=== PATIENT | male | born 1985 | race Caucasian/White ===

== ENCOUNTER 2020-03-01 14:39 | Observation (INO) ==
[2020-03-01] MEDS ORDERED: LORazepam 0.5 MG/1 ML VIAL IV STA (14:59)
[2020-03-01] MEDS ORDERED: GLUCAGON 1 ML IV ONE (14:59)
[2020-03-01] MEDS ORDERED: METOCLOPRAMIDE HCL INJ 5 MG/ML 2 ML VIAL IV ONE (14:59)
[2020-03-01] MEDS ORDERED: diphenhydrAMINE 50 MG/ML VIAL ONE (15:07)
--- NOTE | 2020-03-01 15:23 | Emergency Department Note ---
Impression & Plan Acute esophageal obstruction ED Provider Note INFORMANT: Patient ED PROVIDER(S): Naveen Hartmann MD CHIEF COMPLAINT: Food bolus PLAN: Disposition: Transfer to the OR suite for endoscopy intervention by GI Condition: Good MEDICAL DECISION MAKING: Patient presented with acute esophageal obstruction symptoms after eating pork. He has a history of the same. An IV was established. He was given Reglan, Benadryl, Ativan, and glucagon. Consultation was made with gastroenterology. I discussed the case with Dr. Tran as the patient did not have resolution of his symptoms with medication. She will take the patient emergently to the OR for endoscopy. Triage Nursing notes reviewed and agree them. Vital Signs: reviewed and remarkable for no significant abnormalities Differential diagnosis: Esophageal stricture, esophageal food impaction, esophagitis, esophageal perf oration, aspiration, as well as others were entertained. Diagnostics interpreted by me: Imaging studies: Deferred Consultation(s): Gastroenterology HPI: The patient is a 34 year old male who presents to the Emergency Room with complaints of esophageal food impaction. This started less than an hour and is from eating pork. The patient also notes the following associated symptoms, inability to swallow his own saliva. The patient has found no relieving factors. Current pain is rated as 0/10. Patient has a history of the same several months ago. He was treated at [facility] with endoscopy and dilation. He has been in good health recently. Pt denies LOC, headache, fevers, chills, diaphoresis, visual changes, neck pain, chest pain, breathing difficulties, nausea, vomiting, abdominal pain, back pain, melena, hematochezia, urinary symptoms, numbness, weakness, lymphadenopathy, rash, or other complaints. ROS: See above HPI for pertinent positives & negatives. A total of 10 systems reviewed and were otherwise negative. PAST MEDICAL HISTORY:See Below, esophageal stricture PAST SURGICAL HISTORY:See Below, endoscopy and dilation FAMILY HISTORY:See Below SOCIAL HISTORY:See Below, HOME MEDICATIONS:See Below ALLERGIES:See Below VITALS:See Below PHYSICAL EXAMINATION: GENERAL: Awake, alert, mildly uncomfortable-appearing, in no distress HENT: Normocephalic, atraumatic. Oropharynx unremarkable. EYES: Normal conjunctiva. Sclera non-icteric. NECK: Inspection normal. Non-tender. Supple. No nuchal rigidity. FROM. No masses. RESPIRATORY: Clear to auscultation. No wheezes. No rales. Normal respiratory e ffort. CARDIAC: Normal rate. Normal rhythm. No murmurs. No rubs. Extremities warm and well perfused. Pulses equal. No JVD. GI: Soft, non-distended. No tenderness to palpation. No rebound or guarding. No masses. RECTAL: Deferred. MUSCULOSKELETAL: Atraumatic. Chest examination reveals no tenderness. The back is symmetrical on inspection without obvious abnormality. There is no CVA tenderness to palpation. No joint edema. LOWER EXTREMITIES: Calves are equal size bilaterally and non-tender. No edema. No discoloration. NEURO: Normal sensorium. No sensory or motor deficits noted. SKIN: No rash or jaundice noted. Naveen Hartmann MD Past Med/Surg History Medical History (Updated 03/01/20 @ 16:56 by Lauren Pelayo MD) No significant past medical history Surgical History (Updated 03/01/20 @ 16:57 by Lauren Pelayo MD) History of esophagogastroduodenoscopy (EGD) Social History Smoking Status: Never smoker Feels Safe at Home: Yes Allergies Allergies Allergy/AdvReac Type Severity Reaction Status Date / Time No Known Allergies Allergy Unverified 03/01/20 16:00 Home Meds Home Medications Medication Instructions Recorded Confirmed No Known Home Medications 03/01/20 03/01/20 Results & Data (ED) Vital Signs Vital Signs - 24 hr 03/01/20 14:52 03/01/20 16:50 03/01/20 17:00 Temperature 36.5 C Temperature Source Oral Pulse Rate 80 Pulse Rate [Apical] Pulse Rate [Finger] 70 Pulse Rhythm [Apical] Respiratory Rate 16 17 Respiratory Effort / Characteristics Respiratory Depth Respiratory Pattern Blood Pressure 133/81 Blood Pressure [Left Arm] 121/84 Blood Pressure Mean 98 Blood Pressure Mean [Left Arm] 96 Blood Pressure Position [Left Arm] Pulse Oximetry 99 100 Oxygen Delivery Method Room Air Room Air Oxygen Flow Rate Sepsis Recent Fever Within 48 Hours No Sepsis New/Unexplained Change in Mental Status N/A Sepsis Action Taken by Nursing No Action Required 03/01/20 18:34 03/01/20 18:40 03/01/20 18:50 Temperature 36.9 C Temperature Source Temporal Artery Scan Pulse Rate Pulse Rate [Apical] 104 H 99 H 100 H Pulse Rate [Finger] Pulse Rhythm [Apical] Regular Regular Regular Respiratory Rate 30 H 24 22 Respiratory Effort / Characteristics Non-Labored Spontaneous Non-Labored Spontaneous Non-Labored Spontaneous Respiratory Depth Normal Normal Normal Respiratory Pattern Regular Regular Regular Blood Pressure Blood Pressure [Left Arm] 118/78 130/77 99/75 L Blood Pressure Mean Blood Pressure Mean [Left Arm] 91 94 83 Blood Pressure Position [Left Arm] Lying Lying Lying Pulse Oximetry 100 100 98 Oxygen Delivery Method Oxymask Oxymask Oxymask Oxygen Flow Rate 5 5 5 Sepsis Recent Fever Within 48 Hours Sepsis New/Unexplained Change in Mental Status Sepsis Action Taken by Nursing 03/01/20 19:00 03/01/20 19:10 03/01/20 19:20 Temperature Temperature Source Pulse Rate Pulse Rate [Apical] 95 H 95 H 87 Pulse Rate [Finger] Pulse Rhythm [Apical] Regular Regular Regular Respiratory Rate 14 14 16 Respiratory Effort / Characteristics Non-Labored Spontaneous Non-Labored Spontaneous Non-Labored Spontaneous Respiratory Depth Normal Normal Normal Respiratory Pattern Regular Regular Regular Blood Pressure Blood Pressure [Left Arm] 122/77 129/74 123/77 Blood Pressure Mean Blood Pressure Mean [Left Arm] 92 92 92 Blood Pressure Position [Left Arm] Semi-fowlers Semi-fowlers Semi-fowlers Pulse Oximetry 96 96 88 L Oxygen Delivery Method Room Air Room Air Room Air Oxygen Flow Rate Sepsis Recent Fever Within 48 Hours Sepsis New/Unexplained Change in Mental Status Sepsis Action Taken by Nursing 03/01/20 19:25 03/01/20 19:30 03/01/20 19:35 Temperature Temperature Source Pulse Rate Pulse Rate [Apical] 96 H 92 H 100 H Pulse Rate [Finger] Pulse Rhythm [Apical] Regular Regular Regular Respiratory Rate 20 16 14 Respiratory Effort / Characteristics Non-Labored Spontaneous Non-Labored Spontaneous Non-Labored Spontaneous Respiratory Depth Normal Normal Normal Respiratory Pattern Regular Regular Regular Blood Pressure Blood Pressure [Left Arm] 126/73 121/88 126/75 Blood Pressure Mean Blood Pressure Mean [Left Arm] 90 99 92 Blood Pressure Position [Left Arm] Semi-fowlers Semi-fowlers Semi-fowlers Pulse Oximetry 97 90 93 Oxygen Delivery Method Room Air Room Air Room Air Oxygen Flow Rate Sepsis Recent Fever Within 48 Hours Sepsis New/Unexplained Change in Mental Status Sepsis Action Taken by Nursing 03/01/20 19:45 03/01/20 19:50 03/01/20 20:00 Temperature Temperature Source Pulse Rate Pulse Rate [Apical] 92 H 86 95 H Pulse Rate [Finger] Pulse Rhythm [Apical] Regular Regular Regular Respiratory Rate 12 14 18 Respiratory Effort / Characteristics Non-Labored Spontaneous Non-Labored Spontaneous Non-Labored Spontaneous Respiratory Depth Normal Normal Normal Respiratory Pattern Regular Regular Regular Blood Pressure Blood Pressure [Left Arm] 131/78 118/79 123/79 Blood Pressure Mean Blood Pressure Mean [Left Arm] 95 92 93 Blood Pressure Position [Left Arm] Semi-fowlers Semi-fowlers Semi-fowlers Pulse Oximetry 97 95 95 Oxygen Delivery Method Nasal Cannula Nasal Cannula Nasal Cannula Oxygen Flow Rate 2 2 2 Sepsis Recent Fever Within 48 Hours Sepsis New/Unexplained Change in Mental Status Sepsis Action Taken by Nursing 03/01/20 20:10 03/01/20 20:20 03/01/20 20:30 Temperature 37.1 C Temperature Source Oral Pulse Rate Pulse Rate [Apical] 92 H 93 H 90 Pulse Rate [Finger] Pulse Rhythm [Apical] Regular Regular Regular Respiratory Rate 24 26 H 22 Respiratory Effort / Characteristics Non-Labored Spontaneous Non-Labored Spontaneous Non-Labored Spontaneous Respiratory Depth Normal Normal Normal Respiratory Pattern Regular Regular Regular Blood Pressure Blood Pressure [Left Arm] 117/83 127/82 121/83 Blood Pressure Mean Blood Pressure Mean [Left Arm] 94 97 95 Blood Pressure Position [Left Arm] Semi-fowlers Semi-fowlers Semi-fowlers Pulse Oximetry 94 95 98 Oxygen Delivery Method Nasal Cannula Nasal Cannula Nasal Cannula Oxygen Flow Rate 3 3 3 Sepsis Recent Fever Within 48 Hours Sepsis New/Unexplained Change in Mental Status Sepsis Action Taken by Nursing 03/01/20 20:40 03/01/20 20:50 03/01/20 21:00 Temperature Temperature Source Pulse Rate Pulse Rate [Apical] 102 H 95 H 94 H Pulse Rate [Finger] Pulse Rhythm [Apical] Regular Regular Regular Respiratory Rate 26 H 24 30 H Respiratory Effort / Characteristics Non-Labored Spontaneous Non-Labored Spontaneous Non-Labored Spontaneous Respiratory Depth Normal Normal Normal Respiratory Pattern Regular Regular Regular Blood Pressure Blood Pressure [Left Arm] 122/77 115/67 131/96 Blood Pressure Mean Blood Pressure Mean [Left Arm] 92 83 107 Blood Pressure Position [Left Arm] Semi-fowlers Semi-fowlers Semi-fowlers Pulse Oximetry 94 96 96 Oxygen Delivery Method Nasal Cannula Nasal Cannula Nasal Cannula Oxygen Flow Rate 3 3 3 Sepsis Recent Fever Within 48 Hours Sepsis New/Unexplained Change in Mental Status Sepsis Action Taken by Nursing 03/01/20 21:10 Temperature Temperature Source Pulse Rate Pulse Rate [Apical] 100 H Pulse Rate [Finger] Pulse Rhythm [Apical] Regular Respiratory Rate 24 Respiratory Effort / Characteristics Non-Labored Spontaneous Respiratory Depth Normal Respiratory Pattern Regular Blood Pressure Blood Pressure [Left Arm] 136/85 Blood Pressure Mean Blood Pressure Mean [Left Arm] 102 Blood Pressure Position [Left Arm] Semi-fowlers Pulse Oximetry 97 Oxygen Delivery Method Nasal Cannula Oxygen Flow Rate 3 Sepsis Recent Fever Within 48 Hours Sepsis New/Unexplained Change in Mental Status Sepsis Action Taken by Nursing Laboratory Data Lab Results 03/01/20 03/01/20 Range/Units 15:30 15:30 COVID-19 Eval Order CovFluRsv at [facility] COVID-19 PCR NEGATIVE (Negative) Influenza Type A (PCR) Negative (Neg) Influenza Type B (PCR) Negative (Neg) RSV (RT-PCR) Negative (Neg) Administered Medications Discontinued Medications Diphenhydramine HCl (Diphenhydramine 50 Mg/Ml Vial) Confirm Administered Dose 50 mg .ROUTE .STK-MED ONE Stop: 03/01/20 15:08 Last Admin: 03/01/20 15:14 Dose: 12.5 mg Documented by: [id number] Diphenhydramine HCl 12.5 mg/ (Syringe) 0.25 mls @ 1 mls/hr IV NOW STA Stop: 03/01/20 15:13 Last Admin: 03/01/20 15:14 Dose: Not Given Documented by: [id number] Lorazepam (Ativan) 0.5 mg in 1 mls @ 1 mls/min IV NOW STA Stop: 03/01/20 15:00 Last Admin: 03/01/20 15:13 Dose: 1 mls/min Documented by: [id number] Glucagon (Glucagen) 1 mls @ 1 mls/min IV ONE ONE Stop: 03/01/20 15:00 Last Admin: 03/01/20 15:13 Dose: 1 mls/min Documented by: [id number] Metoclopramide HCl (Metoclopramide Hcl Inj 5 Mg/Ml 2 Ml Vial) 5 mg IV ONE ONE Stop: 03/01/20 15:00 Last Admin: 03/01/20 15:13 Dose: 5 mg Documented by: [id number] Discharge Plan Visit Data Chief Complaint: Food Bolus Stated Complaint: FOOD STUCK IN THROAT ED Provider: Naveen Hartmann Discharge Problem: Acute esophageal obstruction Patient Disposition: Still a Patient Discharge Instructions Interventions: ED Discharge Assessment Last Done: 03/01/20 17:00
[2020-03-01 16:24] LABS: Influenza A virus by PCR Negative (Neg); Influenza B virus by PCR Negative (Neg); RSV by PCR Negative (Neg); SARS CoV2 RNA(COVID-19) InHosp NEGATIVE (Negative)
--- NOTE | 2020-03-01 16:39 | Gastrointestinal Consultation ---
Date of Consultation March 01, 2020 Supervising Physician Co-Signing Physician Notes Egd in the OR for a suspected food bolus. History of Present Illness Reason for Consultation: Food bolus Requesting Physician: JANE - Dr. Phipps Attending Physician: Parvin Tran History of Present Illness 34 yo male ate pork this afternoon around 1 pm- one piece and thereafter can not swallow. He conitnued to feel like he had the inability to swallow thereafter. Came to the ER - seen by the ER physician, reportedly not tolerating his secretions. No response to the medical cocktail. Agreeable to a scope reportedly as he reports this "feels like before." On review of the [facility] GI record- he had a food bolus treated by Dr. Márquez with removal at [facility] in 09/20 with a snare and also alisa forceps - appears to have been some type of meat then. Thereafter, had a repeat egd at [facility] in 10/20 for follow-up empirically dilated to 15 and then 16 mm. No overt narrowing noted on either scope from 09/20 or 10/20. Biopsies done in 10/20 of his esophagus were essentially remarkable, he was noted to have celiac disease on biopsies from the duodenum. He was prescribed prilosec 20 mg po daily in 10/20 reports he has been takin git. Not on blood thinners. Covid negative. outside in the car. Denies fevers, chills, chest pain, sob, belly pain. Allergies Allergy/AdvReac Type Severity Reaction Status Date / Time No Known Allergies Allergy Unverified 03/01/20 16:00 Home Medications Medication Instructions Recorded Confirmed Type No Known Home Medications 03/01/20 03/01/20 History Patient History Medical History (Updated 03/01/20 @ 15:20 by Naveen Hartmann MD) No significant past medical history Social History Smoking Status: Never smoker Feels Safe at Home: Yes Review of Systems Review of Systems: All systems reviewed & are unremarkable except as noted in HPI & below Physical Exam Physical Exam: Well nourished male in nad, slightly tearful Constitutional: WD/WN, vitals as above well developed and well nourished; no acute distress Eyes: PERRL, conjunctivae normal, anicteric sclerae Slightly tearful Respiratory: normal respiratory effort; no respiratory distress and no labored breathing Gastrointestinal (Abdomen): normal bowel sounds, soft, nontender, no hepatosplenomegaly Skin: no rashes, warm and dry Results & Data ([facility]) Vital Signs (Past 12 Hours) Vital Signs Temp Pulse Resp BP Pulse Ox 03/01/20 14:52 36.5 C 80 16 133/81 99 [facility] record reviewed [facility] reviewed
--- NOTE | 2020-03-01 16:57 | Anesthesiology Consultation ---
Date of Service March 01, 2020 Assessment & Plan (1) Encounter for pre-operative examination: Chart Review Chart Review: Acceptable Risk for Surgery and Patient NOT seen in Pre Admission Testing Consults Requested none History Height/Weight Height: 6 ft 2 in Weight: 101 kg Allergies Allergy/AdvReac Type Severity Reaction Status Date / Time No Known Allergies Allergy Unverified 03/01/20 16:00 Medications Home Medications Medication Instructions Recorded Confirmed Last Taken No Known Home Medications 03/01/20 03/01/20 Unknown Past Medical History Medical History (Updated 03/01/20 @ 16:56 by Lauren Pelayo MD) No significant past medical history Past Surgical History Surgical History (Updated 03/01/20 @ 16:57 by Lauren Pelayo MD) History of esophagogastroduodenoscopy (EGD) Social History Smoking Status: Never smoker Physical Exam Vital Signs Last Vital Signs Temp 36.5 C 03/01/20 14:52 Pulse 80 03/01/20 14:52 Resp 16 03/01/20 14:52 BP 133/81 03/01/20 14:52 Pulse Ox 99 03/01/20 14:52
[2020-03-01] MEDS ORDERED: LIDOCAINE HCL 2% 2 ML VIAL/AMP(20MG/ML) INFIL ONE (17:28)
[2020-03-01] MEDS ORDERED: PROPOFOL IV EMULSION 10 MG/ML 20 ML VIAL IV ONE (17:28)
[2020-03-01] MEDS ORDERED: SUCCINYLCHOLINE 100MG/5ML SYR IV ONE (17:28)
[2020-03-01] MEDS ORDERED: ATROPINE SULFATE 0.1 MG/ML 10ML SYR IV PRN (17:38)
[2020-03-01] MEDS ORDERED: PROMETHAZINE HCL 12.5 MG in SODIUM CHLORIDE 0.9% 50 ML IV PRN (17:38)
[2020-03-01] MEDS ORDERED: fentaNYL citrate 100 MCG/2 ML VIAL IV PRN (17:38)
[2020-03-01] MEDS ORDERED: ONDANSETRON INJ 2 MG/ML 2 ML VIAL IV PRN ×2 (17:38→23:24)
[2020-03-01] MEDS ORDERED: ePHEDrine sulfate 50 MG/ML AMP IV PRN (17:38)
[2020-03-01] MEDS ORDERED: fentaNYL citrate 100 MCG/2 ML VIAL ONE (17:59)
[2020-03-01] MEDS ORDERED: ONDANSETRON INJ 2 MG/ML 2 ML VIAL ONE (18:01)
[2020-03-01] MEDS ORDERED: ROCURONIUM BROMIDE 10 MG/ML 5 ML VIAL IV ONE (18:01)
--- NOTE | 2020-03-01 18:28 | GI REPORT ---
Patient Name: Redd Montes Procedure Date: 03/01/2020 5:11 PM Date of : 1985 Admit Type: Emergency Department Age: 34 Gender: Male Attending MD: Parvin Tran M.d. Procedure: Upper GI endoscopy Providers: Parvin Tran M.d. Referring MD: Naveen Hartmann Indications: Food Bolus Medicines: Propofol per Anesthesia, Lidocaine Complications: No immediate complications. Estimated Blood Loss: Estimated blood loss was minimal. Procedure: Pre-Anesthesia Assessment: - Patient identification and proposed procedure were verified prior to the procedure by the physician, the nurse and the anesthesiologist. The procedure was verified in the pre-procedure area. - Prior to the procedure, a History and Physical was performed, and patient medications, allergies and sensitivities were reviewed. The patient's tolerance of previous anesthesia was reviewed. - The risks and benefits of the procedure and the sedation options and risks were discussed with the patient. All questions were answered and informed consent was obtained. After obtaining informed consent, the endoscope was passed under direct vision. Throughout the procedure, the patient's blood pressure, pulse, and oxygen saturations were monitored continuously. The Endoscope was introduced through the mouth, and advanced to the second part of duodenum. The upper GI endoscopy was accomplished without difficulty. The patient tolerated the procedure well. Findings: Food was found in the upper - middle third of the esophagus. Removal of food was accomplished with the use of a Edward and Rat-tooth forceps in a piecemeal fashion. After a signfiicant amout of the bolus of food was removed, the scope passed into the stomach. Residual remnants of food noted in the esophagus were then pushed into the stomach. The examined esophagus after removal appeared normal without evidence of EoE - however he was noted to have an extremely tortuous esophagus primarily in the upper cervical esophagus. The examined stomach appeared normal. The duodenal bulb and second portion of the duodenum appeared normal. Impression: - Normal esophagus. - Food in the upper - middle third of the esophagus. Removal was successful. - Normal stomach. - Normal duodenal bulb and second portion of the duodenum. Recommendation: - Clear liquid diet for next day, then slow advancement to softs for one week. - Thereafter, if eating meat - needs to chew his meat thoroughly. - Would take his PPI twice daily until repeat EGD in 2-4 weeks. - Discharge to home with an escort when recovered. Parvin Tran M.D. Parvin Tran M.d. 03/01/2020 6:28:10 PM This report has been signed electronically. Note Initiated On: 03/01/2020 5:11 PM Number of Addenda: 0 I attest to the content of the Intraoperative Record and orders documented therein, exceptions below {[id number]}
--- NOTE | 2020-03-01 18:30 | Operative Report ---
PG Post Operative Report Pre & Post Diagnosis Operation Date: 03/01/20 18:00 Pre-Op Diagnosis: FOOD STUCK IN THROAT Post-Op Diagnosis: Food bolus I identified the patient and participated in the time-out.: Yes Procedure Operation Date: 03/01/20 18:00 Actual Procedures p EGD Foreign Body Removal(Not Applicable) - Parvin Tran MD Surgeon Parvin Tran MD Stencil Maker Sivan Fried Estimated Blood Loss 10 Findings Consistent with Post-Op Diagnosis Specimens None Description of Procedure EGD with removal of food bolus using a Edward and rat-tooth forceps I attest to the content of the Intraoperative Record and any orders documented therein. Any exceptions are noted below.
--- NOTE | 2020-03-01 19:53 | XRay Report ---
SINGLE VIEW CHEST CLINICAL HISTORY: Aspirated food bolus. FINDINGS: An AP, portable, upright chest radiograph is compared to study dated 09/03/2019. The cardiome diastinal silhouette is unremarkable. Question hazy airspace opacities in the left lung. The right josef ng appears clear. No large pleural effusion or pneumothorax is seen. The bony thorax is grossly intac t. No radiodense foreign body is identified. IMPRESSION: Question hazy airspace opacities in the left lung which may be artifactual. Correlate cli nically for evidence of a mild infectious/inflammatory pneumonitis. ACT 112: Negative or not required by law. Electronically signed by: Wes Garcia M.D. 03/01/2020 7:52 PM
--- NOTE | 2020-03-01 21:28 | Anesthesiology Progress Note ---
Date of Service March 01, 2020 Anesthesia Post Procedure Vital Signs Vital Signs: Temp Pulse Pulse Pulse Resp BP BP 03/01/20 21:10 100 H 24 136/85 03/01/20 21:00 94 H 30 H 131/96 03/01/20 20:50 95 H 24 115/67 03/01/20 20:40 102 H 26 H 122/77 03/01/20 20:30 90 22 121/83 03/01/20 20:20 37.1 C 93 H 26 H 127/82 03/01/20 20:10 92 H 24 117/83 03/01/20 20:00 95 H 18 123/79 03/01/20 19:50 86 14 118/79 03/01/20 19:45 92 H 12 131/78 03/01/20 19:35 100 H 14 126/75 03/01/20 19:30 92 H 16 121/88 03/01/20 19:25 96 H 20 126/73 03/01/20 19:20 87 16 123/77 03/01/20 19:10 95 H 14 129/74 03/01/20 19:00 95 H 14 122/77 03/01/20 18:50 100 H 22 99/75 L 03/01/20 18:40 99 H 24 130/77 03/01/20 18:34 36.9 C 104 H 30 H 118/78 03/01/20 16:50 70 17 121/84 03/01/20 14:52 36.5 C 80 16 133/81 Pulse Ox 03/01/20 21:10 97 03/01/20 21:00 96 03/01/20 20:50 96 03/01/20 20:40 94 03/01/20 20:30 98 03/01/20 20:20 95 03/01/20 20:10 94 03/01/20 20:00 95 03/01/20 19:50 95 03/01/20 19:45 97 03/01/20 19:35 93 03/01/20 19:30 90 03/01/20 19:25 97 03/01/20 19:20 88 L 03/01/20 19:10 96 03/01/20 19:00 96 03/01/20 18:50 98 03/01/20 18:40 100 03/01/20 18:34 100 03/01/20 16:50 100 03/01/20 14:52 99 Transfer of Care Handoff Completed per policy Notes Mental Status: alert / awake / arousable and participated in evaluation Patient Amnestic to Procedure: Yes Nausea / Vomiting: adequately controlled Pain: adequately controlled Airway Patency, RR, SpO2: see Notes below BP & HR: stable & adequate Hydration State: stable & adequate Anesthetic Complications: see Notes below and Pt Satisfied with anesthetic care Notes: Mr. Montes had a food bolus resulting in inability to swallow his own secretions. Despite aggressive suctioning prior to induction and rapid sequence intubation, the patients mouth was notable for copious amounts of clear fluid immediately after induction. About 200 ccs of clear fluid was suctioned from the airway and the ETT was placed on first attempt without any difficulties. The patient's lungs were rhonchorous immediately after intubation and more clear fluid was suctioned through the ETT. The patient tolerated the remainder of the procedure well and was oxygenating appropriately prior to extubation, but after arrival in PACU the patient was noted to desaturate to high 80s when talking or at rest. Levels improved with deep breathing and IS, but were not sustained. In addition, the patient was mildly tachycardic in PACU. Portable CXR was consistent with mild left sided pneumonitis. After discussing the intraoperative events with the patient and his , the decision was made to admit overnight for probable aspiration pneumonitis. Patient to be admitted overnight by [facility] Hospitalist. Dr. Tran was aware with the plan for admission.
[2020-03-01] MEDS ORDERED: ALBUT/IPRATROP 3MG/0.5MG NEB 3 ML VIAL NEB PRN (23:24)
[2020-03-01 23:33] LABS: Basophils # (auto) 0.01 K/uL (0-0.2); Basophils % (auto) 0.1 %; Eosinophils # (auto) 0.06 K/uL (0-0.5); Eosinophils % (auto) 0.3 %; Hematocrit (blood only) 44.6 % (42-52); Hemoglobin 15.2 g/dL (14.0-18.0); Immature Granulocytes # (auto) 0.04 K/uL (0.00-0.02); Immature Granulocytes % (auto) 0.2 %; Lymphocytes # (auto) 1.28 K/uL (1.2-3.4); Lymphocytes % (auto) 7.1 %; Mean Corpuscular Hemoglobin 31.9 pg (25-34); Mean Corpuscular Volume 93.7 fL (80-100); Mean Platelet Volume 10.8 fL (7.4-10.4); Monocytes % (auto) 6.7 %; Neutrophils # (auto) 15.43 K/uL (1.4-6.5); Neutrophils % (auto) 85.6 %; Platelet Count 254 K/uL (130-400); RDW Coefficient of Variation 12.8 % (11.5-14.5); RDW Standard Deviation 44.3 fL (36.4-46.3); Red Blood Count 4.76 M/uL (4.7-6.1); White Blood Count 18.02 K/uL (4.8-10.8)
[2020-03-01 23:35] LABS: Mean Corpuscular Hgb Conc 34.1 g/dL (32-36)
[2020-03-01 23:44] LABS: INR 1.1 (0.9-1.1); Partial Thromboplastin Ratio 0.9; Partial Thromboplastin Time 25.6 Seconds (21.0-31.0); Prothrombin Time 11.1 Seconds (9.0-12.0)
[2020-03-01] MEDS: NSS + 20MEQ KCL 20 MEQ/1,000 ML BAG IV SCH (23:52)
[2020-03-01] MEDS: FAMOTIDINE 20 MG in SYRINGE 3 ML IV SCH (23:52)
[2020-03-01 23:56] LABS: Albumin Level 3.7 gm/dl (3.4-5.0); BUN Creatinine Ratio 17.8 (10-20); Calcium 7.9 mg/dl (8.5-10.1); Creatinine Clr Calc Pharmacy 150.4 ml/min; Est GFR (African American) 129.6; Est GFR (Non-African American) 111.8; Magnesium 1.9 mg/dl (1.8-2.4)
[2020-03-01 23:59] LABS: Albumin Globulin Ratio 1.2 (0.9-2); Bilirubin,Total 0.9 mg/dl (0.2-1); Globulin 3.1 gm/dl (2.5-4.0); Total Protein 6.8 gm/dl (6.4-8.2)
[2020-03-02] MEDS ORDERED: ACETAMINOPHEN 1,000 MG/100 ML VIAL IV PRN (00:18)
[2020-03-02] MEDS ORDERED: PIPERACILL/TAZOBAC CONSULT ACTIVE PRN (00:19)
[2020-03-02] MEDS ORDERED: PIPERACILLIN/TAZOBACTAM 3.375 GM in DEXTROSE 5% 100 ML IV ONE (00:45)
--- NOTE | 2020-03-02 04:06 | History & Physical Report ---
Date of Service March 02, 2020 Assessment & Plan (1) Aspiration pneumonitis: Aspiration pneumonitis with hypoxia and fever- NPO Zosyn 4.5 g IV every 8 hours Acetaminophen 1000 mg IV every 8 hours as needed pain or temperature NSS + KCl 20 mEq at 100 mils per hour Famotidine 20 mg IV every 12 hours DuoNebs every 2 hours as needed Consult pulmonology. Present on Admission?: Yes (2) Hypoxia: Nasal cannula, titrate to keep O2 saturation 95%. Present on Admission?: Yes (3) Acute esophageal obstruction: Status post EGD with relief of obstruction. Present on Admission?: Yes Admission and Anticipated Discharge Date Admission Date: March 01, 2020 History of Present Illness Chief Complaint: The patient underwent EGD for food bolus earlier in the day, and there was concern regarding likely aspiration pneumonitis due to associated large volume of secretions present during the procedure and decreased oxygen saturation afterwards. Primary Care Provider: Elio Alonso MD The patient is a 34-year-old male with a past medical history of previous acute esophageal obstruction, who presented to the emergency department earlier in the day. He was taken to the OR by Dr. Parvin Tran, was noted to have large volume of secretions and concerns regarding possible aspiration pneumonitis, and medicine was asked to admit the patient for observation overnight. Allergies Allergy/AdvReac Type Severity Reaction Status Date / Time No Known Allergies Allergy Unverified 03/01/20 16:00 Home Medications Medication Instructions Recorded Confirmed Type No Known Home Medications 03/01/20 03/01/20 History Past Med/Surg History Medical History (Updated 03/02/20 @ 04:04 by Vinicius Capone MD) No significant past medical history Surgical History (Updated 03/01/20 @ 16:57 by Lauren Pelayo MD) History of esophagogastroduodenoscopy (EGD) Social History Smoking Status: Never smoker Second Hand Exposure: No; Do You Dip or Chew Tobacco: No; Tobacco Cessation Education Requested by Patient: No Hx Alcohol Use: Yes Alcohol type: beer Hx Substance Use: No Preferred Language: Indian Communication Ability: Effective Manager Financial Required: No Beliefs That Will Affect Care: None Current Living Situation: Spouse Other Information That Helps Us Care for You: Yes (same thing happened in September 2019) Feels Safe at Home: Yes Safety Concerns: Feels Safe At This Time Assistive Devices: Oxygen - Continuous Review of Systems Review of Systems: The patient denies chest pain, palpitations, lower extremity swelling, chills, sweats, diarrhea , constipation, abdominal pain, pelvic pain, blood in urine or stool, dysuria, urinary frequency or urgency, lightheadedness, dizziness, headache, memory loss, loss of consciousness, rash, abnormal bruising or bleeding, imbalance, focal or generalized weakness, numbness or tingling in arms or legs, generalized arthralgias or myalgias, back or neck pain, or night sweats. The review of systems is otherwise negative other than for that already noted above, and at least 10 systems have been reviewed. Physical Exam Physical Exam: The patient is seen post EGD, and is awake, alert and oriented 3, normocephalic and atraumatic, lying in bed and in no acute distress. HEENT--PERRL, EOMI, mucous membranes and oropharynx dry. Neck--supple. No JVD. No bruits. Thyroid normal, trachea midline, no adenopathy. Heart--normal S1 and S2. No murmurs, rubs or gallops. Lungs--few coarse breath sounds bilaterally. No respiratory distress, no accessory muscle use. Abdomen--normal bowel sounds and soft. Nontender. Nondistended. Extremities--no cyanosis or clubbing. No edema. Dermatologic--normal skin turgor, normal color, no abnormal lymph nodes, no rash. Neurologic--cranial nerves II through XII grossly intact. Rheumatologic--limited exam Psychiatric--normal affect. Results & Data Results & Data ([facility]) Vital Signs (Past 12 Hours) Vital Signs Temp Pulse Pulse Resp BP BP Pulse Ox 03/02/20 02:33 98.4 F 96 H 18 117/74 98 03/02/20 01:45 98.4 F 76 18 129/74 99 03/02/20 00:31 99.9 F H 111 H 18 132/76 96 03/02/20 00:07 101.8 F H 125 H 18 134/80 95 03/02/20 00:00 101.8 F H 116 H 17 123/79 92 03/01/20 23:24 03/01/20 22:50 98.8 F 115 H 38 H 138/82 96 03/01/20 22:40 111 H 34 H 131/78 96 03/01/20 22:25 115 H 30 H 134/79 95 03/01/20 22:10 104 H 36 H 132/79 95 03/01/20 21:55 101 H 34 H 121/88 94 03/01/20 21:40 89 28 H 145/81 H 97 03/01/20 21:25 95 H 28 H 145/93 H 99 03/01/20 21:10 100 H 24 136/85 97 03/01/20 21:00 94 H 30 H 131/96 96 03/01/20 20:50 95 H 24 115/67 96 03/01/20 20:40 102 H 26 H 122/77 94 03/01/20 20:30 90 22 121/83 98 03/01/20 20:20 98.8 F 93 H 26 H 127/82 95 03/01/20 20:10 92 H 24 117/83 94 03/01/20 20:00 95 H 18 123/79 95 03/01/20 19:50 86 14 118/79 95 03/01/20 19:45 92 H 12 131/78 97 03/01/20 19:35 100 H 14 126/75 93 03/01/20 19:30 92 H 16 121/88 90 03/01/20 19:25 96 H 20 126/73 97 03/01/20 19:20 87 16 123/77 88 L 03/01/20 19:10 95 H 14 129/74 96 03/01/20 19:00 95 H 14 122/77 96 03/01/20 18:50 100 H 22 99/75 L 98 03/01/20 18:40 99 H 24 130/77 100 03/01/20 18:34 98.4 F 104 H 30 H 118/78 100 03/01/20 16:50 70 17 121/84 100 Pulse Ox 03/02/20 02:33 03/02/20 01:45 03/02/20 00:31 03/02/20 00:07 03/02/20 00:00 03/01/20 23:24 95 03/01/20 22:50 03/01/20 22:40 03/01/20 22:25 03/01/20 22:10 03/01/20 21:55 03/01/20 21:40 03/01/20 21:25 03/01/20 21:10 03/01/20 21:00 03/01/20 20:50 03/01/20 20:40 03/01/20 20:30 03/01/20 20:20 03/01/20 20:10 03/01/20 20:00 03/01/20 19:50 03/01/20 19:45 03/01/20 19:35 03/01/20 19:30 03/01/20 19:25 03/01/20 19:20 03/01/20 19:10 03/01/20 19:00 03/01/20 18:50 03/01/20 18:40 03/01/20 18:34 03/01/20 16:50 Code Status & VTE Plan Code Status Full code VTE Prophylaxis Plan VTE Prophylaxis will be ordered: Yes PG Care Time/CCT Total # of Minutes Spent Total Time Spent with Patient: Total time spent is greater than 50% in coordination of care (as documented) at patient's floor/unit and/or counseling patient: Coding Level of Care Code 36873 OBS Care - Level 3 Diagnoses Aspiration pneumonitis J69.0 Hypoxia R09.02 Acute esophageal obstruction K22.2
[2020-03-02] MEDS ORDERED: PIPERACILLIN/TAZOBACTAM 3.375 GM in DEXTROSE 5% 100 ML IV SCH (06:00)
[2020-03-02] MEDS: FAMOTIDINE 20 MG in SYRINGE 3 ML IV SCH (08:02)
--- NOTE | 2020-03-02 08:17 | Gastroenterology Progress Note ---
Date of Service March 02, 2020 Assessment & Plan (1) Aspiration pneumonitis: (2) Acute esophageal obstruction: Suspected aspiration pna post EGD, clinically improving, afebrile this AM, labs pending. Tolerating diet that was advanced last evening. Soft, slippery diet for 1 week Chew food well Keep foods moist PPI twice daily until repeat EGD in 2-4 weeks PNA therapy per primary service GI to sign off. Recall if needed. Admission and Anticipated Discharge Date Admission Date: March 01, 2020 Supervising Physician Co-Signing Physician Notes I have seen and examined the patient and discussed the management with FREDRICK Seymour. 34 yo male admitted post food bolus removal yesterday evening due to concerns for aspiration pneumonitis per anesthesia's request. Had some mild chills in the recovery area, started on zosyn. Cxray showing pneumonitis. He had a significant amount of fluid in his mouth at the time of intubation that likely went into his lungs. Would continue a 7 day course of augmentin on discharge. Advance to soft diet this week. Recall egd in 2-4 weeks. Ok to dc home later today from a gi perspective if no fever or desaturation. Subjective Admitted w/ suspected aspiration pneumonitis with hypoxia, fever post EGD. Feeling well this AM. No CP or SOB. No GERD concerns. His diet appeared to be advanced already. He tolerated breakfast. No nausea or vomiting. Was febrile last evening, vitals this AM WNL. WBC elevation yesterday, no labs today. EGD: Normal esophagus. - Food in the upper - middle third of the esophagus. Removal was successful. - Normal stomach. - Normal duodenal bulb and second portion of the duodenum. Review of Systems Constitutional: no fever, no fatigue and no anorexia Respiratory: no cough and no dyspnea Cardiovascular: no chest pain and no dyspnea Gastrointestinal: no abdominal pain, no coffee ground emesis and no melena Physical Exam Constitutional: well nourished; no acute distress Neck: trachea midline Respiratory: normal respiratory effort; no respiratory distress and no labored breathing Auscultation: + diminished lung sounds Gastrointestinal (Abdomen): Percussion/Palpation: abdomen soft; abdomen nontender, no guarding, abdomen not rigid and no abdominal mass Skin: no rashes, warm and dry Results & Data ([facility]) Vital Signs (Past 12 Hours) Vital Signs Temp Pulse Pulse Resp BP BP Pulse Ox 11/30/20 07:14 36.9 C 87 18 129/77 99 03/02/20 02:33 36.9 C 96 H 18 117/74 98 03/02/20 01:45 36.9 C 76 18 129/74 99 03/02/20 00:31 37.7 C H 111 H 18 132/76 96 03/02/20 00:07 38.8 C H 125 H 18 134/80 95 03/02/20 00:00 38.8 C H 116 H 17 123/79 92 03/01/20 23:24 03/01/20 22:50 37.1 C 115 H 38 H 138/82 96 03/01/20 22:40 111 H 34 H 131/78 96 03/01/20 22:25 115 H 30 H 134/79 95 03/01/20 22:10 104 H 36 H 132/79 95 03/01/20 21:55 101 H 34 H 121/88 94 03/01/20 21:40 89 28 H 145/81 H 97 03/01/20 21:25 95 H 28 H 145/93 H 99 03/01/20 21:10 100 H 24 136/85 97 03/01/20 21:00 94 H 30 H 131/96 96 03/01/20 20:50 95 H 24 115/67 96 03/01/20 20:40 102 H 26 H 122/77 94 03/01/20 20:30 90 22 121/83 98 03/01/20 20:20 37.1 C 93 H 26 H 127/82 95 Pulse Ox 03/02/20 07:14 03/02/20 02:33 03/02/20 01:45 03/02/20 00:31 03/02/20 00:07 03/02/20 00:00 03/01/20 23:24 95 03/01/20 22:50 03/01/20 22:40 03/01/20 22:25 03/01/20 22:10 03/01/20 21:55 03/01/20 21:40 03/01/20 21:25 03/01/20 21:10 03/01/20 21:00 03/01/20 20:50 03/01/20 20:40 03/01/20 20:30 03/01/20 20:20
[2020-03-02] MEDS: NSS + 20MEQ KCL 20 MEQ/1,000 ML BAG IV SCH (10:26)
--- NOTE | 2020-03-02 10:27 | Discharge Summary ---
Date of Service March 02, 2020 Admission HPI Per Admitting Provider Chief Complaint: The patient underwent EGD for food bolus earlier in the day, and there was concern regarding likely aspiration pneumonitis due to associated large volume of secretions present during the procedure and decreased oxygen saturation afterwards. Primary Care Provider: Elio Alonso MD The patient is a 34-year-old male with a past medical history of previous acute esophageal obstruction, who presented to the emergency department earlier in the day. He was taken to the OR by Dr. Parvin Tran, was noted to have large volume of secretions and concerns regarding possible aspiration pneumonitis, and medic ine was asked to admit the patient for observation overnight. Admission Exam Per Admitting Provider The patient is seen post EGD, and is awake, alert and oriented 3, normocephalic and atraumatic, lying in bed and in no acute distress. HEENT--PERRL, EOMI, mucous membranes and oropharynx dry. Neck--supple. No JVD. No bruits. Thyroid normal, trachea midline, no adenopathy. Heart--normal S1 and S2. No murmurs, rubs or gallops. Lungs--few coarse breath sounds bilaterally. No respiratory distress, no accessory muscle use. Abdomen--normal bowel sounds and soft. Nontender. Nondistended. Extremities--no cyanosis or clubbing. No edema. Dermatologic--normal skin turgor, normal color, no abnormal lymph nodes, no rash. Neurologic--cranial nerves II through XII grossly intact. Rheumatologic--limited exam Psychiatric--normal affect. Principal Diagnosis aspiration pneumonitis Discharge Exam GENERAL: No acute distress. Well developed and well nourished. A/O x3. EYES: EOMI. Anicteric sclerae. HENT: Moist mucous membranes. RESPIRATORY: Clear to auscultation bilaterally. No wheezing, rales, or rhonchi. No increased respiratory effort. No accessory muscle use. O2 saturation is 99% on RA. CARDIOVASCULAR: Regular rate and rhythm. No murmurs. ABDOMEN: Soft, non-tender and non-distended. No palpable masses. Normal bowel sounds. EXTREMITIES: No edema. Non-tender. SKIN: Warm, dry. No rashes or lesions. NEUROLOGIC: No focal neurological deficits. PSYCHIATRIC: Cooperative. Appropriate mood and affect. Discharge Data Allergies Allergy/AdvReac Type Severity Reaction Status Date / Time No Known Allergies Allergy Unverified 03/01/20 16:00 Consultations 03/01/20 23:24 Consult Case Management - Discharge Planning Routine Consult Pulmonology Routine Procedures Performed Operation Date: 03/01/20 18:00 Actual Procedures p EGD Foreign Body Removal(Not Applicable) - Parvin Tran MD Hospital Course (1) Hypoxia: Aspiration pneumonitis with hypoxia - Patient developed hypoxia and fever after EGD - Was made NPO status and started on Zosyn 4.5g IV q8h as well as Acetaminophen 1000 mg IV every 8 hours as needed pain or temperature - Also received NSS + KCl 20 mEq at 100 mils per hour and famotidine 20 mg IV every 12 hours - For hypoxia nasal cannula prn to keep O2 saturation at/> 95% - Patient did well overnight and appears clinically well - Discontinued Zosyn - Discussed with patient, likely irritant pneumonitis s/p EGD and no need for further abx management at this time - Discussed warning signs/symptoms including recurrent fever, SOB, or cough; pt advised this would warrant call/evaluation with PCP or in ED as needed Acute esophageal obstruction - Status post EGD with relief of obstruction - Per GI recommendations: soft/slippery diet x1 week, chew food well, PPI BID until repeat EGD in 2-4 week (2) Aspiration pneumonitis: (3) Acute esophageal obstruction: Total Time Total Time Spent Total Time Spent (In Minutes): See attending attestation Discharge Plan Discharge Items Patient Disposition: Home - Self-Care Reason For Visit: ASPIRATION PNEUMONITIS,HYPOXIA Discharge Diagnosis: Food bolus- removed endoscopically Overnight observation for hypoxia s/p EGD Condition on Discharge: Good Activity: Resume your previous activity Non-emergency contact: Primary Care Provider and Manager Of Security Call non-emergency contact if: you have any medication questions and your temperature is above 101.5 Follow-up/Referrals: Elio Alonso MD [Primary Care Provider] - Diet: Other - See Diet Comment Diet Comment: Liquid diet through tomorrow, then softs for one week. Addtl Attending Provider Instructions: You were admitted overnight from 03/01 to 03/02 for low oxygen saturation levels and irritation of the lungs after an EGD for food bolus removal. You received IV antibiotics but they were stopped this morning as you clinically appear well and your lungs are clear. As we discussed, please continue to monitor for shortness of breath, cough, or fever. You should follow up with your PCP within 1 week. You should also follow up with GI as recommended. Continue to use the incentive spirometer at home. Call the GI or your PCP with any questions or concerns. IF YOU EXPERIENCE ANY OF THE FOLLOWING SYMPTOMS AFTER YOUR PROCEDURE CALL YOUR PRIMARY CARE PHYSICIAN IMMEDIATELY OR SEEK MEDICAL ATTENTION AT YOUR NEAREST EMERGENCY ROOM: 1. SEVERE abdominal pain or bloating 2. FEVER greater than 101.1 degrees within 24 hours after the procedure 3. LARGE AMOUNTS OF BLEEDING greater than 2-3 tablespoons. If you had a polyp/s removed or have hemorrhoids, a small amount of blood from the rectum is to be expected. 4. A localized irritation of the vein may occur at the site of the IV injection. Hot moist packs to the vein applied 4-6 times per day may reduce pain and irritation. A tender lump may develop and remain for several weeks to several months, but goes away eventually. If the area continues to be painful or becomes red and hot to the touch. For routine questions call [facility] at [phone]. * Avoid the use of alcohol and sedatives for 24 hours. Pending Studies at Discharge: No Stand-Alone Forms: [facility] Medications and DC Order Prescriptions: No Action No Known Home Medications RF: 0 Discharge Orders: Discharge Order (Routine); Ordered 03/01/20 Ordered By: Parvin Keyes/Other Patient Handouts: Surgery Anesthesia After Admission Data Admit Date/Time: 03/01/20 22:40 Attending Provider: Shira Paige Admit Provider: Vinicius Capone Primary Care Provider: Elio Alonso Other Interventions: Discharge Summary Assessment (RN) Last Done: 03/02/20 11:17 Supervising Physician Co-Signing Physician Notes Patient seen and examined with PGY-1 Dr. Conteh and PGY-3 Dr. Thomas. Agree with hospital course, exam findings, assessment and plan of care as outlined. In brief, Mr. Montes is a 34 y ear old male admitted after experiencing hypoxia post-EGD to remove a food bolus obstruction. Concern for aspiration pneumonitis. Did have fever over night, but resolved. S/p zosyn and duonebs and feeling much better. Will discharge without antibiotics--believe leukocytosis and hypoxia more likely to be related to pneumonitis rather than a true infectious etiology. Will need to continue PPI BID with plans for repeat EGD in 2-4 weeks with GI. Dispo: discharge home today. I personally spent 25 minutes discharge planning for this patient. Resident Activity Tracking Resident Involvement: Resident Care Provided Care Provided: Adult Hospital Medicine
== END 2020-03-02 12:00 | disposition home or self-care (01) ==
LOC: ED 14:39 → 2N 17:00 → OR 17:00 → SUATTDRO 22:40